=== PATIENT | male | born 1950 | race Caucasian/White ===

== ENCOUNTER 2017-03-05 10:51 | Emergency (ER) | payer BC ==
[~2017-03-05] VITALS: Ht 175.3 cm; Wt 70.5 kg
[~2017-03-05 10:51] MED LIST changes: -ASPIRIN 81M81 MG/TA2 PO; -BRILINTA90 MG PO; -CEPHALEXIN500 M1 PO; -LOPRESSOR 225 MG/TAB PO; -NORVASC 5MG5 MG/TAB PO
[2017-03-05 11:03] VITALS: BP 133/79; PULSE 77; TEMP 98.1
[2017-03-05] MEDS ORDERED: NORVASC 5MG5 MG/TAB PO (11:06)
[2017-03-05] MEDS ORDERED: BRILINTA90 MG PO (11:06)
[2017-03-05] MEDS ORDERED: CEPHALEXIN500 M1 PO (12:18)
== END 2017-03-05 12:34 | disposition home or self-care (01) ==
LOC: COL.ER 10:51
DX: S91.211A Laceration without foreign body of right great toe with damage to nail, initial encounter (principal); W22.8XXA Striking against or struck by other objects, initial encounter

== ENCOUNTER → 2017-03-05 | Outpatient (CLI) | payer BC ==
[~2017-03-05] MED LIST: ASPIRIN 81M81 MG/TA2 PO; BRILINTA90 MG PO; CEPHALEXIN500 M1 PO; GLUCOPHAGE500 MG/TAB PO; IBU400 MG PO; LOPRESSOR 225 MG/TAB PO; NO HOME MEDICATIONS; NORCO 325 MG-51 TAB PO; NORVASC 5MG5 MG/TAB PO
== END ==
LOC: COL.RAD 13:48
DX: I65.23 Occlusion and stenosis of bilateral carotid arteries (principal)
CPT/HCPCS: Q9967

== ENCOUNTER 2017-03-16 20:06 | Inpatient (IN) | payer BC ==
[~2017-03-16] VITALS: Ht 175.3 cm; Wt 70.4 kg
[~2017-03-16 20:06] MED LIST changes: +BRILINTA90 MG PO; +CEPHALEXIN500 M1 PO; +NORVASC 5MG5 MG/TAB PO
[2017-03-16] MEDS ORDERED: LOPRESSOR 225 MG/TAB PO (20:18)
[2017-03-16 21:24] LABS: BASO % 0.5 % (0.0-2.0); EOS # 0.1 (0.0-0.7); EOS % 1.7 % (0-4.0); GRAN # 5.5 (1.4-6.5); GRAN % 67.5 % (42.2-75.2); HEMATOCRIT 42.1 % (42.0-52.0); HEMOGLOBIN 14.3 g/dl (13.5-18.0); LYMPH # 1.8 (1.2-3.4); LYMPH % 22.7 % (20.0-51.0); MEAN CELL VOLUME 87 fl (80.0-100.0); MEAN CORPUSCULAR HEMOGLOBIN 30 pg (27.0-31.0); MEAN CORPUSCULAR HGB CONC 34 g/dl (33.0-37.0); MEAN PLATELET VOLUME 12.3 fl (7.4-10.4); MONO # 0.6 (0.1-0.6); MONO % 7.4 % (1.7-9.3); PLATELET COUNT 205 K/mm3 (130-400); RED BLOOD COUNT 4.82 M/mm3 (4.20-5.60); WHITE BLOOD COUNT 8.1 K/mm3 (4.8-10.8)
[2017-03-16 21:51] LABS: ALANINE AMINOTRANSFERASE 29 U/L (21-72); ALBUMIN 4.3 gm/dL (3.5-5.0); ALKALINE PHOSPHATASE 53 U/L (50-136); ANION GAP 12 mmol/L (7-16); BLOOD UREA NITROGEN 15 mg/dL (9-20); C-REACTIVE PROTEIN < 0.5 mg/dL (0.0-0.9); CALCIUM 9.2 mg/dL (8.4-10.2); CARBON DIOXIDE 25 mmol/L (22-30); CHLORIDE 101 mmol/L (98-107); GLUCOSE 102 mg/dL (74-106); PHOSPHOROUS 4.1 mg/dL (2.5-4.5); POTASSIUM 3.9 mmol/L (3.4-5.0); SODIUM 138 mmol/L (137-145); TOTAL PROTEIN 7.2 gm/dL (6.4-8.2)
[2017-03-16 22:01] LABS: ERYTHROCYTE SEDIMENTATION RATE 8 mm/hr (0-30)
[2017-03-16 23:23] LABS: PH 6 (5-8); SQUAMOUS EPITHELIAL 0-2 /hpf; URINE APPEARANCE Clear; URINE BACTERIA None Seen /hpf; URINE BILIRUBIN Negative (NEGATIVE); URINE BLOOD 1+ (NEGATIVE); URINE COLOR Yellow; URINE GLUCOSE Negative (NEGATIVE); URINE KETONE 1+ (NEGATIVE); URINE UROBILINOGEN Negative (NEGATIVE); URINE WBC 0-2 /hpf
[2017-03-17] VITALS (590 sets, daily range): BP systolic 117–146; BP diastolic 66–89; PULSE 58–78; TEMP 97.2–98.7; O2SAT 96–100
[2017-03-17] MEDS ORDERED: ASPIRIN 81M81 MG/TA2 PO (00:29)
[2017-03-17 05:20] LABS: BASO % 0.6 % (0.0-2.0); EOS # 0.1 (0.0-0.7); EOS % 1.9 % (0-4.0); GRAN # 3.8 (1.4-6.5); GRAN % 54.9 % (42.2-75.2); HEMOGLOBIN 13.8 g/dl (13.5-18.0); LYMPH # 2.3 (1.2-3.4); LYMPH % 33.8 % (20.0-51.0); MEAN CELL VOLUME 87 fl (80.0-100.0); MEAN CORPUSCULAR HEMOGLOBIN 30 pg (27.0-31.0); MEAN CORPUSCULAR HGB CONC 35 g/dl (33.0-37.0); MEAN PLATELET VOLUME 12.2 fl (7.4-10.4); MONO # 0.6 (0.1-0.6); MONO % 8.7 % (1.7-9.3); PLATELET COUNT 179 K/mm3 (130-400); RED BLOOD COUNT 4.59 M/mm3 (4.20-5.60); WHITE BLOOD COUNT 6.9 K/mm3 (4.8-10.8)
[2017-03-17 05:27] LABS: ADJUSTED CALCIUM 9.1 mg/dL (8.4-10.2); ALBUMIN 3.8 gm/dL (3.5-5.0); BILIRUBIN,TOTAL 1.1 mg/dL (0.0-1.0); CALCIUM 8.9 mg/dL (8.4-10.2); CREATININE, serum 0.67 mg/dL (0.66-1.25); TOTAL PROTEIN 6.4 gm/dL (6.4-8.2)
[2017-03-17 06:09] LABS: HIV 1/2 Antibodies Non-Reactive; HIV-1p24 Antigen Non-Reactive
[2017-03-18 14:23] LABS: ANGIOTENSIN CONVERTING ENZYME 35 U/L (8 - 53)
[2017-03-18 14:48] LABS: ALBUMIN FRACTION 3.6 g/dL (2.6-4.5); ALBUMIN PERCENTAGE 60.5 % (48.7-61.8); ALPHA 1 FRACTION 0.2 g/dL (0.3-0.5); ALPHA 2 FRACTION 0.7 g/dL (0.6-1.2); ALPHA 2 PERCENTAGE 11.6 % (8.4-17.5); BETA 1 FRACTION 0.4 g/dL (0.4-0.6); BETA 1 PERCENTAGE 6.4 % (5.4-8.9); BETA 2 FRACTION 0.3 g/dL (0.2-0.5); BETA 2 PERCENTAGE 4.7 % (3.8-7.7); GAMMA FRACTION 0.8 g/dL (0.4-1.7); GAMMA PERCENTAGE 12.8 % (8.1-23.0)
== END 2017-03-17 18:24 | disposition short-term general hospital (02) | DRG 552 ==
LOC: COL.ER 20:06 → ICU 23:26 → MEDICAL 03-17 15:50
PROVIDERS: Emergency Medicine; Psychiatry & Neurology Neurology
DX: M48.02 Spinal stenosis, cervical region (principal); G95.29 Other cord compression; M51.24 Other intervertebral disc displacement, thoracic region; R33.9 Retention of urine, unspecified; Z95.5 Presence of coronary angioplasty implant and graft
CPT/HCPCS: A4315; A9585

== ENCOUNTER 2017-05-22 11:15 | Outpatient (RCR) | payer BC ==
[~2017-05-22 11:15] MED LIST changes: +ASPIRIN 81M81 MG/TA2 PO; +LOPRESSOR 225 MG/TAB PO
== END 2017-05-26 12:40 ==
LOC: WSPT 11:15
DX: M48.02 Spinal stenosis, cervical region (principal); Z98.890 Other specified postprocedural states

== ENCOUNTER 2017-08-26 11:00 | Outpatient (RCR) | payer BC | END 2017-09-16 09:52 | disposition home or self-care (01) | LOC: WSPT 11:00 | DX: R27.0 Ataxia, unspecified (principal); R53.1 Weakness; Z98.890 Other specified postprocedural states ==

== ENCOUNTER → 2018-10-04 | Outpatient (CLI) | payer BC | LOC: COL.RAD 13:36 | DX: R06.02 Shortness of breath (principal) ==

== ENCOUNTER → 2019-02-03 | Outpatient (CLI) | payer BC ==
[~2019-02-03] VITALS: Ht 175.3 cm; Wt 74.8 kg
[~2019-02-03] MED LIST changes: +DOXYCYCLINE 10100 MG PO; +LIPITOR 80MG80 MG PO; +TOPROL XL 25MG25 MG PO
[2019-02-03 13:19] VITALS: BP 140/84; PULSE 55
[2019-02-03 14:00] VITALS: BP 151/84; PULSE 65
--- NOTE | 2019-02-03 14:20 | NUR ---
pt out to car per wheelchair. Denies pain at this time. Pt up and into wheelchair without assistance.
== END ==
LOC: COL.RAD 13:06
DX: M51.16 Intervertebral disc disorders with radiculopathy, lumbar region (principal)
CPT/HCPCS: J3301

== ENCOUNTER 2019-02-28 14:00 | Outpatient (RCR) | payer BC | END 2019-05-17 10:56 | disposition home or self-care (01) | LOC: WSC 14:00 | DX: R26.2 Difficulty in walking, not elsewhere classified (principal); R26.89 Other abnormalities of gait and mobility ==

== ENCOUNTER → 2019-02-28 | Outpatient (CLI) | payer BC | LOC: COL.RAD 07:23 | DX: Z01.812 Encounter for preprocedural laboratory examination (principal); M48.02 Spinal stenosis, cervical region; M48.8X2 Other specified spondylopathies, cervical region; Z98.890 Other specified postprocedural states | CPT/HCPCS: A9585 ==

== ENCOUNTER 2019-07-18 08:09 | Day surgery (SDC) | payer BC ==
[~2019-07-18] VITALS: Ht 175.4 cm; Wt 73.0 kg
[2019-07-18] VITALS (462 sets, daily range): BP systolic 112–153; BP diastolic 65–83; PULSE 43–444; TEMP 96.5–97.8; O2SAT 91–100
[2019-07-18 09:21] LABS: CALCIUM 9.4 mg/dL (8.4-10.2); CREATININE, serum 0.76 (0.66-1.25); HEMATOCRIT 44.5 % (42.0-52.0); MEAN CELL VOLUME 90 fl (80.0-100.0); MEAN CORPUSCULAR HEMOGLOBIN 30 pg (27.0-31.0); MEAN CORPUSCULAR HGB CONC 34 g/dl (33.0-37.0); MEAN PLATELET VOLUME 12.9 fl (7.4-10.4); PLATELET COUNT 150 K/mm3 (130-400); POTASSIUM 4.1 mmol/L (3.4-5.0); RED BLOOD COUNT 4.93 M/mm3 (4.20-5.60); REDCELL DISTRIBUTION WIDTH-CV 12.8 % (11.5-14.5)
[2019-07-18 09:31] LABS: INR 1.1 (0.8-3.0); PROTHROMBIN TIME 13.2 SECONDS (9.7-12.8)
[2019-07-18 09:34] LABS: PARTIAL THROMBOPLASTIN TIME 37.4 SECONDS (26.0-37.0)
[2019-07-18] MEDS ORDERED: NITROSTAT0.4 MG/TAB SL (09:46)
[2019-07-18] MEDS ORDERED: NITRO-DUR0.4 MG/PAT TD (09:46)
[2019-07-18] MEDS ORDERED: NATURAL IRON65 MG PO (09:47)
[2019-07-18] MEDS ORDERED: PAZEO2.5 ML OP (09:47)
[2019-07-18] MEDS ORDERED: VITAMIN D 400400 IU PO (09:48)
[2019-07-18] MEDS ORDERED: EPA FISH OIL1 SGL PO (09:48)
[2019-07-18] MEDS ORDERED: VITAMIN C500 MG PO (09:49)
--- NOTE | 2019-07-18 10:44 | NUR ---
SEE MERGE DOCUMENTATION FOR MEDICATION ADMINISTRATION TIMES AND INTRA/POST PROCEDURE SEDATION ASSESSMENTS.
--- NOTE | 2019-07-18 16:30 | NUR ---
Radial compression band removed per protocol. No active bleeding. No active bleeding. Gauze with 4x4 to puncture site. Soft with soft hematoma to site. Distal CMS intact. Brisk cap refill, no tingle/numbness.
--- NOTE | 2019-07-18 17:40 | NUR ---
Puncture site unchanged. Dressing CDI. Up to commode to void x1. Gait steady, denies pain. Tolerating PO without difficulty. No chest pain/SOA/ectopy.
--- NOTE | 2019-07-18 19:15 | NUR ---
Bedside shift report given to oncoming shift. R radial puncture site dressing changed dt small amount of bloody drainage visible on existing dressing.
--- NOTE | 2019-07-18 19:41 | NUR ---
Patient assessment completed and charted at this time, please see documentation for details. Patient resting in bed, denies any issues at this time. Call light within reach, will continue to monitor.
[2019-07-19] VITALS (332 sets, daily range): BP systolic 112–117; BP diastolic 57–72; PULSE 50–56; TEMP 97.8–98.1; O2SAT 92–98
[2019-07-19 05:43] LABS: BASO % 0.4 % (0.0-2.0); EOS # 0.2 (0.0-0.7); EOS % 2.2 % (0-4.0); GRAN # 4.3 (1.4-6.5); GRAN % 60.3 % (42.2-75.2); HEMATOCRIT 40.1 % (42.0-52.0); HEMOGLOBIN 13.5 g/dl (13.5-18.0); LYMPH % 28.2 % (20.0-51.0); MEAN CELL VOLUME 90 fl (80.0-100.0); MEAN CORPUSCULAR HEMOGLOBIN 30 pg (27.0-31.0); MEAN CORPUSCULAR HGB CONC 34 g/dl (33.0-37.0); MEAN PLATELET VOLUME 13.1 fl (7.4-10.4); MONO # 0.6 (0.1-0.6); MONO % 8.8 % (1.7-9.3); PLATELET COUNT 132 K/mm3 (130-400); RED BLOOD COUNT 4.47 M/mm3 (4.20-5.60); REDCELL DISTRIBUTION WIDTH-CV 12.7 % (11.5-14.5)
[2019-07-19 05:56] LABS: CALCIUM 8.9 mg/dL (8.4-10.2); CREATININE, serum 0.64 (0.66-1.25); POTASSIUM 3.8 mmol/L (3.4-5.0)
[2019-07-19] MEDS ORDERED: TOPROL XL 50MG50 MG PO (10:08)
[2019-07-19] MEDS ORDERED: BRILINTA90 MG PO (10:08)
--- NOTE | 2019-07-19 10:32 | NUR ---
Initial visit; Patient and family thanked Hand Almond Blancher for looking in on him and offering God's blessings.
== END 2019-07-19 10:50 | disposition home or self-care (01) ==
LOC: COL.CAR 08:09 → ICU 11:27 → COL.CAR 07-19 10:50
PROVIDERS: Internal Medicine Cardiovascular Disease; Nurse Practitioner
DX: I25.10 Atherosclerotic heart disease of native coronary artery without angina pectoris (principal); I10 Essential (primary) hypertension; J32.9 Chronic sinusitis, unspecified; E11.9 Type 2 diabetes mellitus without complications; K90.9 Intestinal malabsorption, unspecified; M47.9 Spondylosis, unspecified; E78.00 Pure hypercholesterolemia, unspecified; Z88.8 Allergy status to other drugs, medicaments and biological substances; Z79.82 Long term (current) use of aspirin; Z79.84 Long term (current) use of oral hypoglycemic drugs; Z79.899 Other long term (current) drug therapy; Z82.49 Family history of ischemic heart disease and other diseases of the circulatory system; Z83.6 Family history of other diseases of the respiratory system
CPT/HCPCS: OP; C9600; J0583; J1644; J2250; J3010; Q9967

== ENCOUNTER 2019-09-14 14:49 | Outpatient (RCR) | payer BC ==
[~2019-09-14 14:49] MED LIST changes: +EPA FISH OIL1 SGL PO; +NATURAL IRON65 MG PO; +NITRO-DUR0.4 MG/PAT TD; +NITROSTAT0.4 MG/TAB SL; +PAZEO2.5 ML OP; +TOPROL XL 50MG50 MG PO; +VITAMIN C500 MG PO; +VITAMIN D 400400 IU PO
== END 2019-10-30 | disposition home or self-care (01) ==
LOC: COL.CR
DX: Z48.812 Encounter for surgical aftercare following surgery on the circulatory system (principal); Z95.5 Presence of coronary angioplasty implant and graft

== ENCOUNTER → 2020-09-26 | Outpatient (RCR) | payer BC | END | disposition home or self-care (01) | LOC: WSPT | DX: M54.9 Dorsalgia, unspecified (principal) ==

== ENCOUNTER 2020-10-22 10:15 | Outpatient (RCR) | payer BC | END 2020-10-24 12:47 | disposition home or self-care (01) | LOC: WSPT 10:15 | DX: M54.9 Dorsalgia, unspecified (principal) ==

== ENCOUNTER 2021-03-14 11:13 | Emergency (ER) | payer BC ==
[~2021-03-14] VITALS: Ht 175.3 cm; Wt 70.0 kg
[2021-03-14 11:25] VITALS: TEMP 97.5
[2021-03-14 13:03] LABS: BASO # 0.1 (0.0-0.2); BASO % 0.8 % (0.0-2.0); EOS # 0.3 (0.0-0.7); GRAN # 3.4 (1.4-6.5); GRAN % 51.1 % (42.2-75.2); HEMATOCRIT 43.6 % (42.0-52.0); HEMOGLOBIN 14.6 g/dl (13.5-18.0); LYMPH # 2.2 (1.2-3.4); MEAN CELL VOLUME 90 fl (80.0-100.0); MEAN CORPUSCULAR HEMOGLOBIN 30 pg (27.0-31.0); MEAN CORPUSCULAR HGB CONC 34 g/dl (33.0-37.0); MEAN PLATELET VOLUME 13.4 fl (7.4-10.4); MONO # 0.7 (0.1-0.6); MONO % 10.9 % (1.7-9.3); PLATELET COUNT 169 K/mm3 (130-400); RED BLOOD COUNT 4.83 M/mm3 (4.20-5.60); REDCELL DISTRIBUTION WIDTH-CV 13.2 % (11.5-14.5)
[2021-03-14 13:09] LABS: INR 1.3 (0.8-3.0)
[2021-03-14 13:12] LABS: PARTIAL THROMBOPLASTIN TIME 31.8 SECONDS (26.0-37.0)
[2021-03-14 13:14] LABS: ALANINE AMINOTRANSFERASE 32 U/L (4-49); ALKALINE PHOSPHATASE 49 U/L (50-136); ANION GAP 5 mmol/L (7-16); AST,SGOT 29 U/L (15-37); BILIRUBIN,TOTAL 0.6 mg/dL (0.0-1.0); BLOOD UREA NITROGEN 15 mg/dL (9-20); CALCIUM 9.6 mg/dL (8.4-10.2); CARBON DIOXIDE 28 mmol/L (22-30); CHLORIDE 106 mmol/L (98-107); CREATININE, serum 0.61 (0.66-1.25); GLUCOSE 104 mg/dL (74-106); POTASSIUM 4.5 mmol/L (3.4-5.0); SODIUM 139 mmol/L (137-145); TOTAL PROTEIN 6.9 gm/dL (6.4-8.2)
[2021-03-14 13:33] LABS: D-DIMER < 200.00 ng/mLDDu (200-230)
[2021-03-14 13:38] LABS: TROPONIN-I < 0.012 ng/mL (0.000-0.035)
[2021-03-14] MEDS ORDERED: MEDROL 4MG DOSPA4 MG PO (13:42)
[2021-03-14 14:14] VITALS: BP 129/80; PULSE 43
== END 2021-03-14 14:14 | disposition home or self-care (01) ==
LOC: COL.ER 11:13
PROVIDERS: Family Medicine
DX: I25.10 Atherosclerotic heart disease of native coronary artery without angina pectoris (principal); R20.0 Anesthesia of skin; R20.2 Paresthesia of skin; Z95.5 Presence of coronary angioplasty implant and graft; Z79.02 Long term (current) use of antithrombotics/antiplatelets; Z79.82 Long term (current) use of aspirin

== ENCOUNTER 2021-03-28 12:32 | Observation (INO) | payer BC ==
[2021-03-28] VITALS (10 sets, daily range): BP systolic 95–139; BP diastolic 55–76; PULSE 44–55; TEMP 97.8–97.9
[~2021-03-28] VITALS: Ht 175.3 cm; Wt 68.2 kg
[~2021-03-28 12:32] MED LIST changes: +MEDROL 4MG DOSPA4 MG PO
[2021-03-28 13:24] LABS: BASO # 0.1 (0.0-0.2); BASO % 0.9 % (0.0-2.0); EOS # 0.3 (0.0-0.7); EOS % 2.7 % (0-4.0); GRAN # 5.9 (1.4-6.5); GRAN % 64.2 % (42.2-75.2); HEMATOCRIT 46.3 % (42.0-52.0); HEMOGLOBIN 15.7 g/dl (13.5-18.0); LYMPH # 2.1 (1.2-3.4); LYMPH % 22.7 % (20.0-51.0); MEAN CELL VOLUME 90 fl (80.0-100.0); MEAN CORPUSCULAR HEMOGLOBIN 31 pg (27.0-31.0); MEAN CORPUSCULAR HGB CONC 34 g/dl (33.0-37.0); MEAN PLATELET VOLUME 13.1 fl (7.4-10.4); MONO # 0.9 (0.1-0.6); MONO % 9.3 % (1.7-9.3); PLATELET COUNT 155 K/mm3 (130-400); RED BLOOD COUNT 5.15 M/mm3 (4.20-5.60); REDCELL DISTRIBUTION WIDTH-CV 13.2 % (11.5-14.5)
[2021-03-28 13:53] LABS: ALANINE AMINOTRANSFERASE 39 U/L (4-49); ALBUMIN 4.3 gm/dL (3.5-5.0); ALKALINE PHOSPHATASE 55 U/L (50-136); ANION GAP 7 mmol/L (7-16); AST,SGOT 60 U/L (15-37); BILIRUBIN,TOTAL 0.8 mg/dL (0.0-1.0); BLOOD UREA NITROGEN 15 mg/dL (9-20); CALCIUM 9.6 mg/dL (8.4-10.2); CARBON DIOXIDE 26 mmol/L (22-30); CHLORIDE 106 mmol/L (98-107); CREATININE, serum 0.64 (0.66-1.25); GLUCOSE 119 mg/dL (74-106); POTASSIUM 4.4 mmol/L (3.4-5.0); SODIUM 140 mmol/L (137-145); TOTAL PROTEIN 7.5 gm/dL (6.4-8.2)
[2021-03-28 14:16] LABS: TROPONIN-I < 0.012 ng/mL (0.000-0.035)
--- NOTE | 2021-03-28 16:15 | NUR ---
SEE MERGE FOR ALL MEDICATION ADMINISTRATION TIMES, INTRA AND POST SEDATION ASSESSMENTS
--- NOTE | 2021-03-28 16:44 | NUR ---
PT ARRIVED TO FLOOR, AOX4, EAGER FOR DISCHARGE, DENIES PAIN, IV FLUIDS INFUSING. NO OTHER NEEDS
--- NOTE | 2021-03-28 17:29 | NUR ---
PT SETTLED IN, DENIES PAIN, ATTACHED TO POST OP VITALS, BAND INFLATED TO 14ML, NO BLEEDING AT SITE, DINNER ORDERED, AND KIDS VISITING WITH PERMISSION OF [facility]. NO OTHER NEEDS
--- NOTE | 2021-03-28 17:31 | NUR ---
PT ARRIVED TO FLOOR EATING DINNER, VERY PLEASANT, OCCASIONALLY HAVINGA HARD TIME FINDING SOME WORDS, AOX4, STEADY ON FEET, DENIES CHEST PAIN, FRESH ICE WATER BROUGHT IN
--- NOTE | 2021-03-28 19:02 | NUR ---
3ml of air removed from pt band, no bleeding noticed on band. dinner arrived during bedside shift report
--- NOTE | 2021-03-28 19:44 | NUR ---
REPORT RECEIVED FROM NURSE KATZ. PATIENT RESTING IN BED A+OX4. DENIES ANY DISCOMFORT AT THIS TIME. PATIENT HAD CADIAC CATH TODAY, TR BAND TO RIGHT WRIST IN PLACE NO BLEEDING NOTED. FIRST 3MLOF AIR REMOVED. PATIENT INDEPENDENT IN ROOM. CALL LIGHT WITHIN REACH. WILL CONTINUE TO MONITOR.
[2021-03-29 00:05] VITALS: BP 106/51; PULSE 43; TEMP 97.8
[2021-03-29 03:24] VITALS: BP 102/47; PULSE 45; TEMP 97.8
[2021-03-29 07:04] LABS: CALCIUM 8.7 mg/dL (8.4-10.2); CREATININE, serum 0.59 (0.66-1.25); POTASSIUM 4.2 mmol/L (3.4-5.0)
[2021-03-29 09:16] VITALS: BP 126/58; PULSE 52; TEMP 97.8
--- NOTE | 2021-03-29 11:25 | NUR ---
Pt assessment completed and charted. Pt NPO for procedures. Pt has IVF infusing w/o issues. Pt denies dizziness, N/V/D, chest pain, abd pain, SOB. No further needs expressed. Pt down for CT this morning, awaiting MRI. Call light within reach.
--- NOTE | 2021-03-29 12:06 | NUR ---
First visit from the utilization review nurse. NO needs right now.
[2021-03-29 12:19] VITALS: BP 122/58; PULSE 51; TEMP 97.8
--- NOTE | 2021-03-29 14:00 | NUR ---
Patient ambulated independently to the ER entrance. Discharge paperwork and personal belongings with the patient. No further needs expressed from the patient.
[2021-03-29 16:52] LABS: FOLATE (FOLIC ACID) 2.9 ng/mL (2.0-20.0)
== END 2021-03-29 14:00 | disposition home or self-care (01) ==
LOC: COL.ER 12:32 → MEDICAL 14:30
PROVIDERS: Emergency Medicine; Physician Assistant; Psychiatry & Neurology Neurology; ADMIT Internal Medicine
DX: I25.10 Atherosclerotic heart disease of native coronary artery without angina pectoris (principal); I10 Essential (primary) hypertension; E78.5 Hyperlipidemia, unspecified; E11.9 Type 2 diabetes mellitus without complications; M48.02 Spinal stenosis, cervical region; R06.02 Shortness of breath; E78.1 Pure hyperglyceridemia; Z79.84 Long term (current) use of oral hypoglycemic drugs; Z98.890 Other specified postprocedural states; Z20.822 Contact with and (suspected) exposure to COVID-19; Z79.82 Long term (current) use of aspirin; Z79.899 Other long term (current) drug therapy; Z95.1 Presence of aortocoronary bypass graft
CPT/HCPCS: G0378; J1644; J1815; J2250; J3010; J7030; Q9967

== ENCOUNTER 2023-01-21 09:39 | Outpatient (RCR) | payer BC | END 2023-01-25 | disposition home or self-care (01) | LOC: WSPT | DX: M54.2 Cervicalgia (principal); G89.29 Other chronic pain ==

== ENCOUNTER → 2023-07-03 | Outpatient (CLI) | payer BC | LOC: CANSCHCLI → COL.RAD 09:33 | DX: G95.89 Other specified diseases of spinal cord (principal); M47.812 Spondylosis without myelopathy or radiculopathy, cervical region; Z98.890 Other specified postprocedural states | CPT/HCPCS: A9575 ==

== ENCOUNTER 2023-08-28 10:05 | Outpatient (RCR) | payer BC ==
[2023-09-10] MEDS ORDERED: VITAMIN B12 781 TAB PO (07:36)
[2023-09-10] MEDS ORDERED: VITAMIN E1000 U/CAP PO (07:37)
[2023-09-10] MEDS ORDERED: EFFIENT10 MG PO (11:04)
== END 2023-09-27 | disposition home or self-care (01) ==
LOC: WSPT
DX: G95.89 Other specified diseases of spinal cord (principal); M48.02 Spinal stenosis, cervical region; M43.22 Fusion of spine, cervical region

== ENCOUNTER 2023-10-26 10:30 | Outpatient (RCR) | payer BC ==
[~2023-10-26 10:30] MED LIST changes: +EFFIENT10 MG PO; +VITAMIN B12 781 TAB PO; +VITAMIN E1000 U/CAP PO
== END 2023-10-28 | disposition home or self-care (01) ==
LOC: WSPT
DX: M50.30 Other cervical disc degeneration, unspecified cervical region (principal); M48.02 Spinal stenosis, cervical region

== ENCOUNTER 2023-11-19 09:45 | Outpatient (RCR) | payer BC | END 2023-11-26 | disposition home or self-care (01) | LOC: WSPT | DX: M47.812 Spondylosis without myelopathy or radiculopathy, cervical region (principal); M48.02 Spinal stenosis, cervical region; G95.89 Other specified diseases of spinal cord ==

== ENCOUNTER 2024-02-04 15:33 | Outpatient (RCR) | payer BC | END 2024-02-26 | LOC: WSPT | DX: M54.2 Cervicalgia (principal); M48.02 Spinal stenosis, cervical region ==